=== PATIENT | female | born 1980 | race Caucasian/White ===

== ENCOUNTER 2021-11-13 18:28 | Outpatient (REF) | payer OTHER, SELFPAY | END 2021-11-13 18:29 | disposition home or self-care (01) | LOC: HO.LNP 18:28 | PROVIDERS: Visit Provider Family Medicine | DX: Z20.822 Contact with and (suspected) exposure to COVID-19 (principal); B34.9 Viral infection, unspecified | CPT/HCPCS: U0003; U0005 ==

== ENCOUNTER 2024-02-07 08:01 | Outpatient (AMB) | payer OTHER, SELFPAY ==
--- NOTE | 2024-02-07 08:08 | MHC.PC.OV ---
Vital Signs 02/07/24 08:18 Height 5 ft 2 in Weight 188 lb BMI 34.4 BP 132/88 Blood Pressure Location Lt brachial Position Sitting Respiration 14 Pulse 94 Pulse Source Pulse Oximeter Pulse Oximetry (%) 97 Oxygen Delivery Method Room Air Intake Visit Reasons: establish care- Intake Note: New patient visit Accounting Software Specialist Required: No Allergies No Known Allergies Allergy (Verified 02/07/24 08:09) Medication List - Last Reconciled 02/07/24 by Karina Gonzalez PA-C acetaminophen (Tylenol Extra Strength) 500 mg PO Q6H PRN amlodipine 10 mg PO DAILY 90 days azathioprine 100 mg PO DAILY brimonidine 0.15% 0 drps ophthalmic (eye) bromfenac 0.09% drps ophthalmic (eye) chlorthalidone 25 mg PO DAILY dorzolamide 2% 0 drps ophthalmic (eye) dulaglutide (Trulicity) 0.75 mg (0.5 mL) subcut QWEEK glyburide 5 mg PO BID 90 days levonorgestrel-ethinyl estrad 0.1-20 mg-mcg (Sronyx) 1 tab PO DAILY lisinopril 20 mg PO DAILY 90 days metformin 1,000 mg PO BID 90 days milk thistle 175 mg PO BEDTIME potassium chloride ER (Klor-Con) 10 mEq PO DAILY timolol maleate 0.5% drps ophthalmic (eye) Tobacco use date assessed: 02/07/24 Dental Screening Dental Screen Date: 02/07/24 Did you have a dental visit in the last 12 months?: No Did you have a dental problem in the last 6 months where you did not have access to dental care?: No Was dental information given to patient?: Patient has dentist HPI establish care- HPI Details Patient is a 43-year-old female who presents today to [facility]. She is transferring from [facility], no records available at time of visit. She has a significant past medical history of hypertension, uveitis, secondary glaucoma and cataracts, and type 2 diabetes. CV: Blood pressure today is 132/88. She is on lisinopril 10 mg, amlodipine 10 mg and chlorthalidone 25 mg. She reports taking potassium intermittently. Her cholesterol she reports as diet controlled. Endo: Last A1c was 9. She is on metformin 1000 mg b.i.d., glyburide 5 mg. She is on an LILLIAN inhibitor. Not currently on a statin, LDL goal is less than 70. Her last LDL was. Her last eye exam was [address] Laurent. Her last foot exam was Ophthalmology: follows with Dr. Laurent for her chronic uveitis (dx 2012) and is on remicade infusions and azathioprine. Developed glaucoma and cataracts due to residential steroid use and ? dm involvement. She is s/p bilateral cataract removal (unknown date), will get records. 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 Mammogram: never done Client Success Specialist: UTD, sep 2023 Due this year for a colonoscopy. [facility] Medical History (Updated 02/07/24 @ 09:07 by Karina Gonzalze PA-C) Uveitis HTN (hypertension) Type 2 diabetes mellitus with other diabetic ophthalmic complication Poorly controlled type 2 diabetes mellitus with complication Family History (Updated 02/07/24 @ 08:29 by Irma Posadas CMA) Mother HTN (hypertension) Social History Housing: Apartment Patient Tobacco Use Status: Never used Tobacco e-Cigarette/Vaping Use: Never Used Second Hand Smoke Exposure: No service: No Current occupational status: employed Current occupation: [employer] Current occupational exposures/hazards: No Cognitive needs: No Hearing needs: No Vision needs: No Questionnaire PHQ-9 Over the last 2 weeks, how often have you been bothered by any of the following problems? 1. Little interest or pleasure in doing things: not at all 2. Feeling down, depressed, or hopeless: not at all 3. Trouble falling or staying asleep, or sleeping too much: not at all 4. Feeling tired or having little energy: not at all 5. Poor appetite or overeating: not at all 6. Feeling bad about yourself - or that you are a failure or have let yourself or your family down: not at all 7. Trouble concentrating on things, such as reading the newspaper or watching television: not at all 8. Moving or speaking so slowly that other people could have noticed. Or the opposite - being so fidgety or restless that you have been moving around a lot more than usual: not at all 9. Thoughts that you would be better off or of hurting yourself in some way: not at all Total score: 0 Depression Screening Interpretation: Negative Depression Screening Done: Yes 47139 - PHQ-9 Billing: Yes Source: Developed by Bernice Hollingsworth Kurt Kroenke and colleagues, with an educational jimmy from [employer]. Thrive Questionnaire Date Thrive assessed: 02/07/24 I am a: Patient What is your living situation today?: I have a steady place to live Within the past 12 months, did the food you bought not last and you didn't have the money to get more?: Never true Within the past 12 months, did you worry whether your food would run out before you got money to buy more?: Never true Do you have trouble paying for medicines?: No Do you have trouble getting transportation to medical appointments?: No Do you have trouble paying your heating and electricity bill?: No Do you have trouble taking care of your child, family member or friend?: No Do you have trouble with day-to-day activities such as bathing, preparing meals, shopping, managing finances, etc.?: No Are you currently unemployed and looking for a job?: No Are you interested in more education?: No Please select the resources that you would like help with: None Currently or been in a relationship where the following occur: no concerns reported THRIVE Score: 0 AUDIT C Alcohol Use Questionnaire (AUDIT-C) 1. How often do you have a drink containing alcohol?: Never 3. How often do you have six or more drinks on one occasion?: Never Total Score: 0 Score Reviewed/Action Taken: Yes ELIEL-7 AMB Questionnaire ELIEL-7 Date ELIEL - 7 assessed: 02/07/24 Feeling nervous, anxious, or on edge: 0 = Not at all Not being able to stop or control worryin = Not at all Worrying too much about different things: 0 = Not at all Trouble relaxin = Not at all Being so restless that it is hard to sit still: 0 = Not at all Becoming easily annoyed or irritable: 0 = Not at all Feeling afraid as if something awful might happen: 0 = Not at all Total ELIEL-7 score (0-4 normal; 5-9 mild; 10-14 moderate; 15-21 severe): 0 Source: Developed by Bernice Hollingsworth Kurt Kroenke and colleagues, with an educational jimmy from [employer]. ELIEL-7 Assessment Billing ELIEL-7 Assessment Tool: ELIEL-7 Assessment 39145 Physical exam (Primary Care) Vital Signs: Last Vital Signs Pulse 94 02/07/24 08:18 Resp 14 02/07/24 08:18 BP 132/88 02/07/24 08:18 Pulse Ox 97 02/07/24 08:18 Oxygen Delivery Method Room Air 02/07/24 08:18 BMI result Body Mass Index 34.4 Tobacco/Smoking Status: Tobacco use Status Tobacco use date assessed 02/07/24 02/07/24 08:21 Patient Tobacco Use Status Never used Tobacco 02/07/24 08:21 e-Cigarette/Vaping Use Never Used 02/07/24 08:21 Depression Screening Interpretation: Negative Currently or been in a relationship where the following occur: no concerns reported Const Orientation/consciousness: patient oriented x3 HENMT Ears: hearing grossly normal bilaterally Neck Thyroid: Thyroid normal Lymphatic: no lymphadenopathy noted Resp Auscultation: clear to auscultation bilaterally Cardio Rate: regular rate Rhythm: regular rhythm GI Inspection: Yes normal to inspection Palpation (GI): Soft to palpation and Other GI palpation findings present (nontender, no cva tenderness) Auscultation: normoactive bowel sounds Rectal Exam - Female: deferred Skin General skin exam: no rashes or lesions noted Neuro General: patient oriented x3, gait normal and no focal motor deficits Assessment and Plan Assessment & Plan (1) Poorly controlled type 2 diabetes mellitus with complication: Code(s): E11.8 - Type 2 diabetes mellitus with unspecified complications; E11.65 - Type 2 diabetes mellitus with hyperglycemia Plan: poorly controlled, increased glyburide to BID dosing. Start trulicity (will let me know if coverage issues). Discussed risks and benefits and adverse effects such as n/v and constipation. reports has dm testing supplies at home. dm labs ordered today (2) Type 2 diabetes mellitus with other diabetic ophthalmic complication: Code(s): E11.39 - Type 2 diabetes mellitus with other diabetic ophthalmic complication Plan: follows q [address] Laurent. (3) Glaucoma: Code(s): H40.9 - Unspecified glaucoma Qualifiers: Glaucoma type: associated with underlying disease Laterality: bilateral Qualified Code(s): H42 - Glaucoma in diseases classified elsewhere Plan: well managed by Dr. Laurent. (4) Uveitis: Code(s): H20.9 - Unspecified iridocyclitis Plan: on remicade and azathioprine. (5) HTN (hypertension): Code(s): I10 - Essential (primary) hypertension Qualifiers: Hypertension type: primary hypertension Qualified Code(s): I10 - Essential (primary) hypertension Plan: not quite at goal today, refills provided. increased lisinopril to 20 mg. Plan labs ordered today (cbc, cmp, lipids, urine, tsh) and will be completed prior to next ov. 1 month follow up to recheck bs and bp. mammogram ordered discussed need for colonoscopy this summer and she is going to think about it. currently, does not want screening. Orders: Orders Hemoglobin A1c Today E11.39 - Type 2 diabetes mellitus with other diabetic ophthalmic complication, E11.65 - Type 2 diabetes mellitus with hyperglycemia, E11.8 - Type 2 diabetes mellitus with unspecified complications, H20.9 - Unspecified iridocyclitis, I10 - Essential (primary) hypertension Lipid Panel Today E11.39 - Type 2 diabetes mellitus with other diabetic ophthalmic complication, E11.65 - Type 2 diabetes mellitus with hyperglycemia, E11.8 - Type 2 diabetes mellitus with unspecified complications, H20.9 - Unspecified iridocyclitis, I10 - Essential (primary) hypertension Microalbumin, Random (w Creat) Today E11.39 - Type 2 diabetes mellitus with other diabetic ophthalmic complication, E11.65 - Type 2 diabetes mellitus with hyperglycemia, E11.8 - Type 2 diabetes mellitus with unspecified complications, H20.9 - Unspecified iridocyclitis, I10 - Essential (primary) hypertension Comprehensive Petty. Panel Fast Today E11.39 - Type 2 diabetes mellitus with other diabetic ophthalmic complication, E11.65 - Type 2 diabetes mellitus with hyperglycemia, E11.8 - Type 2 diabetes mellitus with unspecified complications, H20.9 - Unspecified iridocyclitis, I10 - Essential (primary) hypertension TSH reflex Free T4 Today E11.39 - Type 2 diabetes mellitus with other diabetic ophthalmic complication, E11.65 - Type 2 diabetes mellitus with hyperglycemia, E11.8 - Type 2 diabetes mellitus with unspecified complications, H20.9 - Unspecified iridocyclitis, I10 - Essential (primary) hypertension Complete Blood Count Auto Diff Today E11.39 - Type 2 diabetes mellitus with other diabetic ophthalmic complication, E11.65 - Type 2 diabetes mellitus with hyperglycemia, E11.8 - Type 2 diabetes mellitus with unspecified complications, H20.9 - Unspecified iridocyclitis, I10 - Essential (primary) hypertension, Z00.00 - Encounter for general adult medical examination without abnormal findings MM screening mammo BI Today Z12.31 - Encounter for screening mammogram for malignant neoplasm of breast Medications: New amlodipine 10 mg PO DAILY 90 days 90 tabs 3RF glyburide 5 mg PO BID 90 days 180 tabs 3RF dulaglutide (Trulicity) 0.75 mg (0.5 mL) subcut QWEEK 2 mL 5RF lisinopril 20 mg PO DAILY 90 days 90 tabs 3RF chlorthalidone 25 mg PO DAILY 90 tabs 3RF metformin 1,000 mg PO BID 90 days 180 tabs 3RF infliximab (Remicade) IV Discontinued glyburide Discontinued Reason: Doctor's Order 5 mg PO DAILY 90 days 90 tabs 1RF E11.9 - Type 2 diabetes mellitus without complications Coding Level of Care Code New Pt Level 4 (66482) Diagnoses Poorly controlled type 2 diabetes mellitus with complication E11.8; E11.65 Type 2 diabetes mellitus with other diabetic ophthalmic complication E11.39 Glaucoma of both eyes associated with underlying disease H42 Glaucoma type: associated with underlying disease Laterality: bilateral Uveitis H20.9 Primary hypertension I10 Hypertension type: primary hypertension Additional Codes ELIEL-7 Assessment Billing - ELIEL-7 Assessment Tool: ELIEL-7 Assessment [id number] ([id number])
[2024-02-07 08:18] VITALS: BP 132/88; PULSE 94; RESP 14; O2SAT 97; BMI 34.4
== END 2024-02-07 09:13 | disposition home or self-care (01) ==
PROVIDERS: PCP Physician Assistant; Visit Provider Physician Assistant
DX: E11.65 Type 2 diabetes mellitus with hyperglycemia (principal); E11.39 Type 2 diabetes mellitus with other diabetic ophthalmic complication; H42 Glaucoma in diseases classified elsewhere; H20.9 Unspecified iridocyclitis; I10 Essential (primary) hypertension
CPT/HCPCS: 99204; 99214